=== PATIENT | male | born 1980 | race Two or more races ===

== ENCOUNTER → 2020-11-08 06:40 | Outpatient (CLI) | payer OTHER, SELFPAY ==
[2020-11-08 17:04] LABS: SARS-CoV-2 RNA PCR Negative
== END ==
PROVIDERS: PCP Family Medicine; Visit Provider Family Medicine
DX: Z20.822 Contact with and (suspected) exposure to COVID-19 (principal); R09.89 Other specified symptoms and signs involving the circulatory and respiratory systems
CPT/HCPCS: C9803; U0003; U0005